=== PATIENT | male | born 1945 | race Caucasian/White ===

== ENCOUNTER 2022-01-26 19:26 | Emergency (ER) | payer MEDICARE, OTHER ==
[~2022-01-26 19:26] MED LIST: ALLOPURINOL 10100 MG PO; BUMEX1 MG PO; COUMADIN5 MG PO; COUMADIN7.5 MG PO; DIGOX125 MCG PO; FINASTERIDE5 MG PO; KEFLEX500 MG PO; LISINOPRIL 10MG10 MG PO; LOPRESSOR25 MG PO
[2022-01-26 20:38] LABS: BASOPHIL 0.2 % (0-2); EOSINOPHIL 0.4 % (0-7); HCT 33.4 % (42.0-52.0); HGB 9.6 g/dl (13.2-18.0); LYMPHOCYTE 4.4 % (15-48); MCHC 28.7 g/dL (32.0-36.0); MPV 9.5 fL (6.0-9.5); NEUTROPHIL 87.6 % (41-80); NRBC 0; PLT 177 K/uL (150-400); RBC 3.84 M/uL (4.70-6.00); RDW 17.6 % (11.5-14.0); WBC 10.3 K/uL (4.0-10.5)
[2022-01-26 21:01] LABS: ALBUMIN 4.2 g/dL (3.4-5.0); ALKALINE PHOSHATASE 105 U/L (46-116); ALT 67 U/L (16-63); AST 80 U/L (15-37); BILIRUBIN - TOTAL 1.1 mg/dL (0.2-1.0); BUN 26 mg/dL (7-18); CHLORIDE 102 mmol/L (98-107); CO2 (BICARBONATE) 26 mmol/L (21-32); CREATININE 1.18 mg/dL (0.67-1.17); GLOBULIN (CALCULATION) 3.4 g/dL; GLUCOSE 234 mg/dL (74-106); LIPASE >2250 U/L (73-393); POTASSIUM 3.7 mmol/L (3.5-5.1); TOTAL PROTEIN 7.6 g/dL (6.4-8.2)
[2022-01-27 02:31] LABS: BILIRUBIN NEGATIVE (NEGATIVE); BLOOD NEGATIVE Ery/uL (NEGATIVE); CLARITY CLEAR (CLEAR); COLOR YELLOW (YELLOW); GLUCOSE (U) NORMAL (NORMAL); LEUKOCYTES NEGATIVE Leu/uL (NEGATIVE); NITRITE NEGATIVE (NEGATIVE); PROTEIN 1+ mg/dL (NEGATIVE); UROBILINOGEN 0.2 mg/dL (0.2-1.0)
[2022-01-27 02:42] LABS: BACTERIA TRACE
[2022-01-27 02:43] LABS: MUCOUS TRACE
== END 2022-01-27 04:10 | disposition other institution (70) ==
LOC: FER 19:26
PROVIDERS: Emergency Medicine
DX: K80.50 Calculus of bile duct without cholangitis or cholecystitis without obstruction (principal); I10 Essential (primary) hypertension; Z79.899 Other long term (current) drug therapy
CPT/HCPCS: 36415; 80053; 81001; 83690; 84484; 85025; 96372; J1650; J2270; J2405; J2543; J7030; Q9967

== ENCOUNTER 2022-03-01 10:19 | Emergency (ER) | payer MEDICARE, OTHER ==
[2022-03-01 11:32] LABS: BASOPHIL 0.2 % (0-2); EOSINOPHIL 0.7 % (0-7); HCT 32.7 % (42.0-52.0); LYMPHOCYTE 4.5 % (15-48); MCH 25.8 pg (25.0-31.0); MCHC 30.6 g/dL (32.0-36.0); MCV 84.5 fL (78.0-100.0); MONOCYTE 11.1 % (0-12); MPV 9.7 fL (6.0-9.5); NRBC 0; PLT 253 K/uL (150-400); RBC 3.87 M/uL (4.70-6.00); RDW 21.2 % (11.5-14.0); WBC 5.6 K/uL (4.0-10.5)
[2022-03-01 11:33] LABS: ALBUMIN 3.2 g/dL (3.4-5.0); BILIRUBIN - TOTAL 0.6 mg/dL (0.2-1.0); BUN/CREAT RATIO (CALC) 27.1 RATIO; CREATININE 1.7 mg/dL (0.67-1.17); GLOBULIN (CALCULATION) 4.1 g/dL; POTASSIUM 4.5 mmol/L (3.5-5.1); TOTAL PROTEIN 7.3 g/dL (6.4-8.2)
[2022-03-01 12:00] LABS: INR 4.3 (0.9-1.2); PROTHROMBIN TIME 39.6 SECONDS (11.9-13.9)
[2022-03-01 14:27] LABS: BILIRUBIN NEGATIVE (NEGATIVE); BLOOD NEGATIVE Ery/uL (NEGATIVE); CLARITY HAZY (CLEAR); COLOR YELLOW (YELLOW); GLUCOSE (U) NORMAL (NORMAL); LEUKOCYTES NEGATIVE Leu/uL (NEGATIVE); NITRITE NEGATIVE (NEGATIVE); PROTEIN NEGATIVE (NEGATIVE); UROBILINOGEN 0.2 mg/dL (0.2-1.0); pH 5.5 (5.0-9.0)
== END 2022-03-01 16:57 | disposition home or self-care (01) ==
LOC: FER 10:19
PROVIDERS: Emergency Medicine
DX: K56.699 Other intestinal obstruction unspecified as to partial versus complete obstruction (principal); I10 Essential (primary) hypertension
CPT/HCPCS: 36415; 80053; 81003; 85025; 85610

== ENCOUNTER 2022-03-26 17:57 | Emergency (ER) | payer MEDICARE, OTHER ==
[2022-03-26 21:31] LABS: INR 2.75 (0.9-1.2); PROTHROMBIN TIME 28.1 SECONDS (11.9-13.9)
[2022-03-26 21:37] LABS: BUN/CREAT RATIO (CALC) 19.9 RATIO; CREATININE 1.46 mg/dL (0.67-1.17); POTASSIUM 3.6 mmol/L (3.5-5.1)
[2022-03-26 21:43] LABS: BASOPHIL 0.5 % (0-2); EOSINOPHIL 2.1 % (0-7); HCT 36.1 % (42.0-52.0); LYMPHOCYTE 16.5 % (15-48); MCH 26.1 pg (25.0-31.0); MCHC 30.5 g/dL (32.0-36.0); MCV 85.5 fL (78.0-100.0); MONOCYTE 8.5 % (0-12); MPV 9.9 fL (6.0-9.5); NEUTROPHIL 72.2 % (41-80); NRBC 0; PLT 150 K/uL (150-400); RBC 4.22 M/uL (4.70-6.00); RDW 20.7 % (11.5-14.0); WBC 4.2 K/uL (4.0-10.5)
== END 2022-03-26 22:12 | disposition home or self-care (01) ==
LOC: FER 17:57
PROVIDERS: Internal Medicine
DX: K14.8 Other diseases of tongue (principal); Z79.01 Long term (current) use of anticoagulants; X58.XXXA Exposure to other specified factors, initial encounter
CPT/HCPCS: 36415; 80048; 85025; 85610; 85730; 99283